=== PATIENT | female | born 1985 | race Hispanic/Latino ===

== ENCOUNTER 2020-10-23 11:32 | Emergency (ER) | payer OTHER ==
[~2020-10-23] VITALS: Ht 149.9 cm; Wt 59.0 kg
[2020-10-23 13:39] VITALS: BP 170/96
== END 2020-10-23 13:40 | disposition home or self-care (01) ==
LOC: ER 11:58
DX: S40.022A Contusion of left upper arm, initial encounter (principal); R23.3 Spontaneous ecchymoses; Y04.0XXA Assault by unarmed brawl or fight, initial encounter; Y92.008 Other place in unspecified non-institutional (private) residence as the place of occurrence of the external cause; I10 Essential (primary) hypertension
CPT/HCPCS: 99283